=== PATIENT | male | born 1955 | race Caucasian/White ===

== ENCOUNTER 2019-11-22 16:36 | Emergency (ER) | payer MEDICARE, OTHER, SELFPAY ==
[2019-11-22 16:33] VITALS: BP 148/78; PULSE 84; RESP 17; TEMP 36.4; O2SAT 96
--- NOTE | 2019-11-22 16:43 | ED.NAVMDI ---
HPI - Nausea/Vomiting/Diarrhea General Chief complaint: Nausea/Vomiting/Diarrhea Stated complaint: N/V History of Present Illness HPI Narrative: Sudden onset of nausea and 2 episodes of vomiting this afternoon. This was associated with diaphoresis, pallor, light headedness, and possibly a syncopal episode. He continues to feel mildly nauseated at this time. He says that he has had similar episodes in the pat. Never this severe. Denies chest pain, SOB, fall, diarrhea, constipation, abdominal pain. Related Data Home Medications Medication Instructions Recorded Confirmed No Home Medications 11/22/19 11/22/19 Allergies Allergy/AdvReac Type Severity Reaction Status Date / Time No Known Allergies Allergy Unverified 11/22/19 16:33 Review of Systems Review of Systems: All systems reviewed & are unremarkable except as noted in HPI and below Constitutional: Constitutional: Denies fever(s) ENT: Reports dizziness Cardiovascular: Cardiovascular: Denies chest pain Respiratory: Respiratory: Denies cough and Denies dyspnea Gastrointestinal: Gastrointestinal: Denies abdominal pain, Denies constipation, Denies diarrhea, Reports nausea and Reports vomiting Genitourinary: Genitourinary: Denies dysuria Musculoskeletal: Musculoskeletal: Denies back pain Neurologic: Reports syncope, Denies focal weakness and Reports weakness PMFSH Past Medical History Medical History (Updated 11/22/19 @ 19:38 by Carlos Mancilla MD) Borderline high blood pressure Social History Social History (Updated 11/22/19 @ 17:08 by Carlos Mancilla MD) Gender identity (if verbalized by the patient): Male Sexual Orientation (if Verbalized by the Patient): Straight or Heterosexual Exam Const: General: no acute distress and alert Nutritional Appearance: obese Orientation/consciousness: patient oriented x3 HENMT: Head: normal to inspection Resp: Effort & Inspection: normal respiratory effort Auscultation: clear to auscultation bilaterally Cardio: Rate: regular rate Rhythm: regular rhythm GI: Inspection: non-distended GI Palp: Yes Soft to palpation and No Tenderness to palpation present (GI) Skin: General skin exam: normal color and no pallor Neuro: General: patient oriented x3, moves all extremities, no focal motor deficits and CN's II-XI intact bilaterally Speech: normal speech Extrem: General: normal to inspection and no edema Course Vital Signs Vital signs: Vital Signs Temperature 36.4 C 11/22/19 16:33 Pulse Rate 84 11/22/19 16:33 Respiratory Rate 17 11/22/19 16:33 Blood Pressure 148/78 H 11/22/19 16:33 Pulse Oximetry 96 11/22/19 16:33 Temperature 36.4 C 11/22/19 16:33 Pulse Rate 74 11/22/19 19:16 Respiratory Rate 20 11/22/19 19:16 Blood Pressure 157/91 H 11/22/19 19:16 Pulse Oximetry 95 11/22/19 19:16 MDM - Nausea/Vomiting/Diarrhea MDM Narrative Medical decision making narrative: Nausea resolved. Labs largely reassuring. I advised him to follow-up with his PCP for BP and glucose check. Medical Records Attestation: I reviewed the patient's medical records. Lab Data Attestation: I reviewed the patient's lab results. Result diagrams: 11/22/19 17:08 11/22/19 17:08 Labs: Lab Results 11/22/19 11/22/19 11/22/19 Range/Units 17:07 17:08 17:08 WBC 7.2 (4.5-10.0) K/mm3 RBC 5.46 (4.6-6.20) M/mm3 Hgb 16.3 (14.0-18.0) g/dL Hct 46.4 (42.0-52.0) % MCV 85.0 (80-100) fl MCH 29.9 (26-34) pg MCHC 35.1 (32-36) g/dl RDW 12.8 (11.5-14.5) % Plt Count 228 (150-375) k/mm3 MPV 9.4 (7.4-10.4) fl Immature Gran % (Auto) 0.7 H (0-0.5) % Neut % (Auto) 61.7 (45.5-73.1) % Lymph % (Auto) 28.0 (18.3-44.2) % [place] % (Auto) 5.6 (2.6-8.5) % Eos % (Auto) 2.6 (0-4.4) % Baso % (Auto) 1.4 H (0.2-1.2) % Lymph # (Auto) 2.01 (0.9-3.2) K/mm3 [place] # (Auto) 0.4 (0.1-0.6) K/mm3 Eos # (Au
--- NOTE | 2019-11-22 17:03 | ECG_ITS ---
Measurements Intervals [place] Rate: 79 P: 14 TX: 246 QRS: -23 QRSD: 125 T: 62 QT: 430 QTc: 494 Interpretive Statements SINUS RHYTHM WITH FIRST DEGREE AV BLOCK INTRAVENTRICULAR CONDUCTION DELAY VOLTAGE CRITERIA FOR LVH DELAYED PRECORDIAL R/S TRANSITION MINIMAL Q WAVES- HIGH LATERAL LEADS BORDERLINE ST-T WAVE ABNORMALITY- HIGH LATERAL LEADS PROLONGED QT INTERVAL ABNORMAL ECG Electronically Signed On 11-22-2019 18:55:46 CDT by Tal Anand D.O.
[2019-11-22] MEDS: ONDANSETRON INJ 4 MG/2 ML VIAL IV PUSH (17:14)
[2019-11-22 17:16] LABS: Basophils Absolute Auto 0.1 K/mm3 (0.0-0.1); Basophils Percent Auto 1.4 % (0.2-1.2); Eosinophils Absolute Auto 0.2 K/mm3 (0-0.3); Eosinophils Percent Auto 2.6 % (0-4.4); Hematocrit 46.4 % (42.0-52.0); Hemoglobin 16.3 g/dL (14.0-18.0); Immature Granulocyte Absolute 0.05 K/mm3 (0.00-0.031); Immature Granulocyte Percent A 0.7 % (0-0.5); Lymphocytes Absolute Auto 2.01 K/mm3 (0.9-3.2); Mean Corpuscular HGB Conc 35.1 g/dl (32-36); Mean Corpuscular Hemoglobin 29.9 pg (26-34); Mean Platelet Volume 9.4 fl (7.4-10.4); Monocytes Absolute Auto 0.4 K/mm3 (0.1-0.6); Monocytes Percent Auto 5.6 % (2.6-8.5); Neutrophils Absolute Auto 4.4 K/mm3 (1.3-6.7); Neutrophils Percent Auto 61.7 % (45.5-73.1); Platelet Count Result 228 k/mm3 (150-375); Red Blood Count 5.46 M/mm3 (4.6-6.20); Red Cell Distribution Width 12.8 % (11.5-14.5); White Blood Count 7.2 K/mm3 (4.5-10.0)
[2019-11-22 17:27] LABS: Alanine Aminotransferase 32 U/L (4-50); Albumin Level 4.2 g/dL (3.5-5.1); Alkaline Phosphatase 52 U/L (38-126); Anion Gap 12 mmol/L (8-16); Aspartate Amino Transferase 33 U/L (17-59); Bilirubin,Total 0.4 mg/dL (0.2-1.3); Blood Urea Nitrogen 23 mg/dL (9-20); Carbon Dioxide 23 mmol/L (22-30); Chloride 103 mmol/L (98-107); Estimated CRCL calculation 90 ml/min; Estimated Glomerular Filt Rate > 60; Glucose 184 mg/dL (75-110); Lipase 76 U/L (23-300); Potassium 3.6 mmol/L (3.4-5.0); Sodium 138 mmol/L (137-145)
[2019-11-22 17:54] LABS: Troponin I < 0.012 ng/mL (0.000-0.034)
[2019-11-22 18:28] LABS: Add Urine Microscopic? NO; Appearance Urine Clear (Clear); Bilirubin Urine Negative (Negative); Blood Urine Negative (Negative); Color Urine Yellow (Yellow); Glucose Urine UA Negative (Negative); Ketones Urine Negative (Negative); Leukocyte Esterase Ur Negative LEU/UL (Negative); Nitrate Urine Negative (Negative); Protein Urine Negative (Negative); Specific Grav Ur 1.015 (1.001-1.035); Urobilinogen Urine Negative mg/dL (<2.0)
[2019-11-22 18:41] VITALS: BP 151/80; PULSE 76; RESP 16; O2SAT 100
[2019-11-22 19:16] VITALS: BP 157/91; PULSE 74; RESP 20; O2SAT 95
--- NOTE | 2019-11-22 19:16 | PC.NURSE ---
Report received from GLORIA Light. Assumed care of patient at this time.
[2019-11-22 20:08] VITALS: BP 157/77; PULSE 74; RESP 18; O2SAT 96
== END 2019-11-22 19:55 | disposition home or self-care (01) ==
PROVIDERS: Emergency Provider Emergency Medicine
DX: R11.2 Nausea with vomiting, unspecified (principal); R55 Syncope and collapse; R94.31 Abnormal electrocardiogram [ECG] [EKG]; R03.0 Elevated blood-pressure reading, without diagnosis of hypertension
CPT/HCPCS: 36415; 80053; 81003; 83690; 84484; 85025; 93005; 96374; 99284; J2405